=== PATIENT | male | born 1985 | race Caucasian/White ===

== ENCOUNTER → 2020-11-26 12:57 | Outpatient (CLI) | payer OTHER, SELFPAY ==
[2020-12-04 09:03] LABS: Renin, Plasma 43.657 ng/mL/hr (0.167-5.380)
== END ==
PROVIDERS: Visit Provider Internal Medicine Nephrology
DX: I10 Essential (primary) hypertension (principal)
CPT/HCPCS: 36415; 82088; 84244

== ENCOUNTER → 2021-02-10 14:55 | Outpatient (CLI) | payer OTHER, SELFPAY ==
[2021-02-15 07:58] LABS: Aldosterone, Serum 18.3 ng/dL (0.0-30.0)
== END ==
PROVIDERS: Referring Provider Internal Medicine Nephrology; Visit Provider Internal Medicine Nephrology
DX: I10 Essential (primary) hypertension (principal)
CPT/HCPCS: 36415; 82088